=== PATIENT | female | born 1970 | race Two or more races ===

== ENCOUNTER 2016-05-05 13:45 | Emergency (ER) | payer OTHER ==
[2016-05-05 14:08] VITALS: BP 110/75; PULSE 90; RESP 18; TEMP 98.8; O2SAT 96
--- NOTE | 2016-05-05 15:20 | UCPHY ---
H & P Time Seen by Provider: 05/05/16 14:38 Patient Type: New HPI/ROS: This patient fell over the dog yesterday a.m. at home and struck the thumb and dorsum of her hand against the floor. She reports moderate pain, swelling and ecchymosis to the site since that time. She wants to rule out fracture. She has partial improvement from [id number] analgesics and no other exacerbating or alleviating factors. ROS: No numbness or tingling. No other injuries from the incident. 5 point ROS is otherwise negative. Past Medical/Surgical History: Otherwise healthy Smoking Status: Never smoked Physical Exam: Physical Exam Vital signs are normal. General: No acute distress HEENT: Atraumatic. Eyes: Pupils equal and react to light. Extraocular motions are intact. Lungs: No respiratory distress. Cardiac: Brisk capillary refill is intact throughout. Pulses are 2+ and symmetric in the affected extremity. Skin: No rash or pallor. Extremities: Atraumatic normal except for left hand Left hand: Patient has ecchymosis and swelling the dorsum of her hand-moderate she also has mild ecchymosis to the ulnar aspect of the left thumb metacarpophalangeal joint without laxity Neuro: Alert and oriented x3 with no sensorimotor deficits. Initial differential diagnosis: Hand fracture versus hematoma, thumb sprain versus fracture Constitutional: Initial Vital Signs Temperature (C) 37.1 C 05/05/16 14:05 Heart Rate 90 05/05/16 14:05 Respiratory Rate 18 05/05/16 14:05 Blood Pressure 110/75 05/05/16 14:05 O2 Sat (%) 96 05/05/16 14:05 O2 Delivery Mode Room Air Allergies/Adverse Reactions: No Known Allergies Allergy (Unverified 05/05/16 14:05) Home Medications: Medication Instructions Recorded NK [No Known Home Meds] 05/05/16 MDM/Departure - MDM Diagnostics: Hand x-ray: Negative for fracture by my interpretation - Depart Disposition: Home, Routine, Self-Care Clinical Impression: Sprain of hand, thumb, left Qualifiers: Encounter type: initial encounter Sprain of finger site: metacarpophalangeal joint Qualified Code(s): S63.642A - Sprain of metacarpophalangeal joint of left thumb, initial encounter Condition: Good Instructions: Skier's Thumb (ED), Hematoma (ED) Additional Instructions: Diagnosis: 1. Thumb sprain 2. Hand hematoma Plan: Thumb spica splint-wear this until symptoms resolve-most likely over the next 5-10 days. Ibuprofen and Tylenol for discomfort as needed Ice 20 minutes at a time the top the hand 3 times a day for the next 5 days or so O Elevate ramen ever able Return for any significant worsening despite treatment plan. Follow up with Dr. Murry-customer resolution specialist for any ongoing symptoms despite the treatment plan. Referrals: Devin Parson MD [Primary Care Provider] - As per Instructions - PQRS PQRS Measurement: NA
== END 2016-05-05 15:34 | disposition home or self-care (01) ==
LOC: CED 13:45
DX: S63.642A Sprain of metacarpophalangeal joint of left thumb, initial encounter (principal); S60.222A Contusion of left hand, initial encounter; W01.0XXA Fall on same level from slipping, tripping and stumbling without subsequent striking against object, initial encounter; W22.8XXA Striking against or struck by other objects, initial encounter
CPT/HCPCS: 73130-PO; G0463-PO

== ENCOUNTER → 2018-05-04 | Outpatient (CLI) | payer OTHER | LOC: CIMAGING 08:07 | PROVIDERS: ATTEND Family Medicine | DX: Z12.31 Encounter for screening mammogram for malignant neoplasm of breast (principal) ==